=== PATIENT | female | born 1955 | race Two or more races ===

== ENCOUNTER 2018-07-03 11:23 | Outpatient (CLI) | payer OTHER | END 2018-07-03 11:38 | disposition home or self-care (01) | LOC: SONOGRAMA 11:23 | DX: N63.11 Unspecified lump in the right breast, upper outer quadrant (principal) ==

== ENCOUNTER 2018-10-13 06:52 | Day surgery (SDC) | payer OTHER ==
[~2018-10-13 06:52] MED LIST: BENADRYL50 MG PO; BETIMOL5 M1 OP; HALOPERIDOL1 MG PO; TRAZODONE HCL50 MG PO; [UNRECOGNIZED DRUG - OTHER] PO
== END 2018-10-14 12:16 | disposition home or self-care (01) ==
LOC: CIR.AMB 06:52 → SURH 22:37 → CIR.AMB 22:37 → O/R 22:37 → CIR.AMB 10-14 12:16 → SURH 10-14 12:25 → O/R 10-14 12:25
DX: C50.411 Malignant neoplasm of upper-outer quadrant of right female breast (principal)